=== PATIENT | male | born 1995 | race Caucasian/White ===

== ENCOUNTER 2016-10-25 14:48 | Emergency (ER) | payer OTHER ==
[2016-10-25 15:09] VITALS: RESP 16
--- NOTE | 2016-10-25 15:28 | EDPHY ---
H & P Stated Complaint: LIGHTHEADED, "CHEEKY," NUMBNESS IN LEGS, FEVER, ALMOST PASSED OUT Time Seen by Provider: 10/25/16 15:28 - Personal History Current Tetanus Diphtheria and Acellular Pertussis (TDAP): Unsure - Medical/Surgical History Hx Asthma: Yes Hx Chronic Respiratory Disease: No Hx Diabetes: No Hx Cardiac Disease: No Hx Renal Disease: No Hx Cirrhosis: No Hx Alcoholism: No Hx HIV/AIDS: No Hx Splenectomy or Spleen Trauma: No Other PMH: DENIES - Social History Smoking Status: Never smoked Constitutional: Initial Vital Signs Temperature (C) 36.9 C 10/25/16 15:05 Heart Rate 101 H 10/25/16 15:05 Respiratory Rate 16 10/25/16 15:05 Blood Pressure 125/75 H 10/25/16 15:05 O2 Sat (%) 97 10/25/16 15:05 O2 Delivery Mode Room Air Allergies/Adverse Reactions: No Known Allergies Allergy (Unverified 10/25/16 15:10) Home Medications: Medication Instructions Recorded NK [No Known Home Meds] 10/25/16 Medical Decision Making - Diagnostics Imaging Results: Imaging Impressions Testicular Ultrasound 10/25/16 15:34 Impression: 1. No intratesticular masses. 2. No testicular torsion. 3. No definite inflammatory changes. 4. Small right varicocele. Findings and recommendations discussed with Emergency Department physician, Nathan Hicks MD at 16:11 hour, 10/25/2016. Final report concurs with initial preliminary interpretation. Imaging: Discussed imaging studies w/ call box wirer Radiologist ED Course/Re-evaluation: CHIEF COMPLAINT: Groin pain. HISTORY OF PRESENT ILLNESS: The patient is a 21-year-old male who presents with one hour of genital and groin pain. He reports that he felt paresthesias in his legs after the pain began. The pain was initially severe and he felt near- syncopal. It is still present but not as bad. He is not currently sexually active. He denies traumas, fever, or other complaints. REVIEW OF SYSTEMS: A 10 point review of systems was performed and is negative with the exception of the elements mentioned in the history of present illness. PHYSICAL EXAM: HR, BP, O2 Sat, RR. Temp noted General Appearance: Alert, well hydrated, appropriate, and non-toxic appearing. Head: Atraumatic without scalp tenderness or obvious injury Eyes: Pupils equal, round, reactive to light and accommodation, EOMI, no trauma , no injection. Ears: Clear bilaterally, no perforation, normal landmarks Nose: Atraumatic, no rhinorrhea, clear. Throat: There is no erythema or exudates, no lesions, normal tonsils, mucus membranes moist. Neck: Supple, 2+ carotid upstroke, nontender, no lymphadenopathy. Respiratory: No retractions, no distress, no wheezes, and no accessory muscle use. Lungs are clear to auscultation bilaterally. Cardiovascular: Regular rate and rhythm, no murmurs, rubs, or gallops. Bilateral carotid, radial, dorsalis pedis, and posterior tibial pulses intact. Good capillary refill all extremities. Gastrointestinal: Abdomen is soft, nontender, non-distended, no masses, no rebound, no guarding, no peritoneal signs. Male : Tenderness over epididymal ball. I don't feel a mass or torsion. Musculoskeletal: Normal active ROM of all extremities, atraumatic. Neurological: Alert, appropriate, and interactive. The patient has normal DTRs and non-focal cranial nerves, motor, sensory, and cerebellar exam. Skin: No rashes, good turgor, no nodules on palpation. Past medical history: Denies. Past surgical history: Denies. Family history: N/A. Social history: Here alone. DIAGNOSTICS/PROCEDURES/CRITICAL CARE TIME: Study: Ultrasound of the: Testicles. Indication: Pain. Results: See Image Results section for official radiologist report. The study was read by the radiologist. I viewed the images myself on the PACS system. DIFFERENTIAL DIAGNOSIS: The differential diagnosis for the patient's testicular pain included but was not limited to epididymitis, orchitis, referred pain from kidney stone, inguinal hernia, and torsion of the testicle. MEDICAL DECISION MAKIN-year-old male presents with testicular pain. He reports a sudden severe onset that has since subsided. On exam he is tender in the epididymal ball. I don't feel a mass or torsion or swelling. He has not been sexually active for a period of time. Testicular ultrasound ordered. Urinalysis ordered. 1611: Ultrasound results conveyed to me negative by Dr. Whiting radiology. 1640: Reassessed patient. Discussed results of his ultrasound. I have recommended discharge. He is comfortable with the plan. - Data Points Laboratory Results: 10/25/16 10/25/16 16:15 16:15 Urine RBC 0-1 /hpf /hpf (0-3) Urine WBC 1-3 /hpf /hpf (0-3) Ur Epithelial Cells NONE SEEN /lpf /lpf (NONE-1+) Hyaline Casts 1-5 /lpf /lpf (0-1) Urine Mucus TRACE /lpf /lpf (NONE-1+) C.trachomatis RNA (TMA) Pending N.gonorrhoeae RNA (TMA) Pending Departure - Departure Disposition: Home, Routine, Self-Care Clinical Impression: Testicular pain Condition: Good Instructions: Testicle Pain (ED) Additional Instructions: Return for any worsening pain, urinary symptoms, or any other serious worsening of condition. Referrals: Thomas Fernandez MD [Medical Doctor] - Follow Up Only If Needed (On-call urologist.) Report Scribed for: Nathan Hicks Report Scribed by: Rome Geronimo Date of Report: 10/25/16 Time of Report: 16:36
[2016-10-25 16:29] LABS: MUCUS TRACE /lpf (NONE-1+)
[2016-10-25 16:30] LABS: RBC,URINE 0-1 /hpf (0-3)
[2016-10-25 16:50] VITALS: BP 118/62; PULSE 74; TEMP 98.2; O2SAT 95
[2016-10-26 15:01] LABS: CHLAMYDIA AMPLIFICATION GENPRB NEGATIVE (NEGATIVE)
== END 2016-10-25 16:50 | disposition home or self-care (01) ==
DX: N50.819 Testicular pain, unspecified (principal); J45.909 Unspecified asthma, uncomplicated